=== PATIENT | male | born 1995 | race Caucasian/White ===

== ENCOUNTER 2024-11-03 12:01 | Outpatient (CLI) | payer OTHER, SELFPAY | END 2024-11-03 12:02 | disposition home or self-care (01) | LOC: NFLDREF 11-10 00:06 | PROVIDERS: PCP Family Medicine; Visit Provider Family Medicine | DX: R31.29 Other microscopic hematuria (principal); L29.9 Pruritus, unspecified; M54.50 Low back pain, unspecified | CPT/HCPCS: 87086 ==

== ENCOUNTER 2024-11-17 07:43 | Outpatient (CLI) | payer OTHER, SELFPAY ==
--- NOTE | 2024-11-17 08:00 | CRLHL7_ITS ---
For Patients: As a result of the 21st Century Cures Act, medical imaging exams and procedure reports are released immediately into your electronic medical record. You may view this report before your referring provider. If you have questions, please contact your health care provider. INDICATION: Microscopic hematuria. TECHNIQUE: CT abdomen and pelvis urogram without and with 100 cc Isovue 370 IV contrast. Contrast images were obtained in the nephrographic and delayed phases. COMPARISON: None. FINDINGS: Kidneys: Bilateral kidneys are normal in size and show symmetric enhancement. There is right midpole cyst measuring 1.9 cm with peripheral calcification identified on noncontrast imaging. Punctate nonobstructing left mid and lower pole nephrolithiasis are present. No suspicious filling. Moderate left-sided hydronephrosis and hydroureter is identified. Defect within the opacified portions of bilateral renal collecting system and urinary bladder to suspect mass. Urinary Bladder: The urinary bladder is normal in caliber and without evidence of wall thickening, or inflammation. Large 9 millimeter bladder calculus is noted. Other: GI tract is normal in caliber and appearance. Normal appendix. The liver is normal in caliber and attenuation. Gallbladder demonstrates no acute findings. Spleen, pancreas, and adrenal glands are normal. No mass or adenopathy. No free intraperitoneal fluid or air. Small fat containing umbilical hernia. Lumbar vertebral body height and alignment is maintained. No concerning bony lesion. IMPRESSION: 1. Large bladder calculus of 9 mm. Punctate nonobstructing left nephrolithiasis. Moderate left hydronephrosis and hydroureter without obstructing ureteric calculus. 2. Complex right midpole renal cyst of 1.9 cm with peripheral calcification. 3. No other acute or significant findings. Please note that all CT scans at this facility use dose modulation, iterative reconstruction, and/or weight-based dosing when appropriate to reduce radiation dose to as low as reasonably achievable. Dictated by Gurdeep Alvarado MD @ 11/17/2024 11:39:28 AM (Electronically Signed)
== END 2024-11-17 07:44 | disposition home or self-care (01) ==
PROVIDERS: PCP Family Medicine; Visit Provider Family Medicine
DX: R31.29 Other microscopic hematuria (principal); N21.0 Calculus in bladder; N28.1 Cyst of kidney, acquired
CPT/HCPCS: 74178; Q9967

== ENCOUNTER 2024-12-15 12:03 | Outpatient (CLI) | payer OTHER, SELFPAY | END 2024-12-15 12:04 | disposition home or self-care (01) | LOC: FBOREF 12:03 | PROVIDERS: PCP Family Medicine; Visit Provider Family Medicine | DX: N21.0 Calculus in bladder (principal); R31.29 Other microscopic hematuria; Z01.818 Encounter for other preprocedural examination | CPT/HCPCS: 80048; 85025 ==

== ENCOUNTER 2025-06-03 10:17 | Outpatient (CLI) | payer OTHER, SELFPAY | END 2025-06-03 10:18 | disposition home or self-care (01) | PROVIDERS: PCP Family Medicine; Visit Provider Family Medicine | DX: R68.82 Decreased libido (principal); M62.50 Muscle wasting and atrophy, not elsewhere classified, unspecified site | CPT/HCPCS: 84403; 84443 ==